=== PATIENT | male | born 1950 | race Caucasian/White ===

== ENCOUNTER → 2019-10-21 | Outpatient (CLI) | payer OTHER ==
[~2019-10-21] MED LIST: APIX2.5T PO; LOPE2CAP3 PO; None per pt
== END | disposition home or self-care (01) ==
LOC: STAR 10:57
PROVIDERS: ATTEND Orthopaedic Surgery
DX: Z01.818 Encounter for other preprocedural examination (principal); M25.371 Other instability, right ankle; I45.10 Unspecified right bundle-branch block
CPT/HCPCS: 93005

== ENCOUNTER 2019-10-29 06:50 | Day surgery (SDC) | payer OTHER ==
[~2019-10-29] VITALS: Ht 175.3 cm; Wt 96.3 kg
[2019-10-29] MEDS: LACTATED RINGERS 1,000 ML IV SCH (07:51)
[2019-10-29] MEDS ORDERED: OMEP-110 PO (07:55)
[2019-10-29] MEDS ORDERED: FENTANYL PF 100 MCG/2ML ONE ×3 (08:24→11:00)
[2019-10-29] MEDS ORDERED: MIDAZOLAM 1 MG/ML, 2ML ONE (08:24)
[2019-10-29] MEDS ORDERED: ONDANSETRON 2MG/ML, 2ML ONE (08:53)
[2019-10-29] MEDS ORDERED: SUCCINYLCHOLINE 20 MG/ML, 10ML ONE (08:53)
[2019-10-29] MEDS ORDERED: DEXAMETHASONE 4 MG/ML, 1ML ONE (08:53)
[2019-10-29] MEDS ORDERED: PROPOFOL 10 MG/ML, 20ML ONE (08:53)
[2019-10-29] MEDS ORDERED: CEFAZOLIN 1,000 MG ONE (08:53)
[2019-10-29] MEDS ORDERED: DIAZEPAM 5 MG/ML, 2ML IVPush PRN (10:00)
[2019-10-29] MEDS ORDERED: KETOROLAC 30 MG/1 ML IV PRN (10:00)
[2019-10-29] MEDS ORDERED: LABETALOL 5MG/ML, 20ML IV PRN (10:00)
[2019-10-29] MEDS ORDERED: ALBUTEROL SULFATE 2.5 MG/3 ML NPPB PRN (10:00)
[2019-10-29] MEDS ORDERED: PROMETHAZINE 25 MG/ML, 1ML IV PRN (10:00)
[2019-10-29] MEDS ORDERED: HYDROmorphone 2 MG/ML, 1ML IVPush PRN (10:00)
[2019-10-29] MEDS ORDERED: MEPERIDINE/PF 25MG/0.5ML IVPush PRN (10:00)
[2019-10-29] MEDS ORDERED: ACETAMINOPHEN 325 MG TABLET PO PRN (10:00)
[2019-10-29] MEDS ORDERED: hydrALAzine 20 MG/ML, 1ML IV PRN (10:00)
[2019-10-29] MEDS ORDERED: KETOROLAC 30 MG/1 ML ONE (10:38)
[2019-10-29] MEDS ORDERED: OXYcodone 5 MG/5 ML ORAL.SOL UDC ONE ×2 (10:38→11:03)
[2019-10-29] MEDS: FENTANYL PF 100 MCG/2ML IV PRN ×4 (10:40→11:07)
[2019-10-29] MEDS: OXYcodone 5 MG/5 ML ORAL.SOL UDC PO PRN ×2 (10:44→11:04)
[2019-10-29] MEDS ORDERED: ACETAMINOPHEN 650 MG/20.3 ML UDC ONE (11:03)
[2019-10-29] MEDS ORDERED: HYDROmorphone 1 MG/ML, 1ML INJ ONE (11:15)
== END 2019-10-29 12:30 | disposition home or self-care (01) ==
LOC: OUT 06:50
PROVIDERS: ATTEND Orthopaedic Surgery
DX: M19.171 Post-traumatic osteoarthritis, right ankle and foot (principal); M25.771 Osteophyte, right ankle; K21.9 Gastro-esophageal reflux disease without esophagitis; Z79.899 Other long term (current) drug therapy; Z86.718 Personal history of other venous thrombosis and embolism
CPT/HCPCS: 28725; 64445; 64447; 73650; C1713; C1762; J0330; J0690; J1100; J1170; J1885; J2250; J2405; J2704; J3010; J7120; 76000

== ENCOUNTER 2020-03-24 05:27 | Day surgery (SDC) | payer OTHER ==
[~2020-03-24] VITALS: Ht 175.3 cm; Wt 98.4 kg
[~2020-03-24 05:27] MED LIST changes: +ACET-1600 PO; +OMEP-110 PO; +OXCA300T19 PO; +TAMS-11 PO
[2020-03-24] MEDS ORDERED: LACTATED RINGERS 1,000 ML IV SCH (06:39)
[2020-03-24 06:41] VITALS: BP 161/95
[2020-03-24] MEDS ORDERED: LIDOCAINE 1%, 20ML ONE (06:49)
[2020-03-24] MEDS ORDERED: BUPIVACAINE/PF-EPI 0.5% 1:200K ONE (06:49)
[2020-03-24] MEDS ORDERED: CHLORHEXIDINE 15 ML UDC MM ONE (07:00)
[2020-03-24] MEDS ORDERED: MIDAZOLAM 1 MG/ML, 2ML ONE (07:19)
[2020-03-24] MEDS ORDERED: FENTANYL PF 250 MCG/5ML ONE (07:19)
[2020-03-24] MEDS ORDERED: ROCURONIUM 10MG/ML,5ML ONE (07:20)
[2020-03-24] MEDS ORDERED: BUPIVACAINE/PF 0.5% ONE (07:21)
[2020-03-24] MEDS ORDERED: SUCCINYLCHOLINE 20 MG/ML, 10ML ONE (07:47)
[2020-03-24] MEDS ORDERED: ONDANSETRON 2MG/ML, 2ML ONE (07:47)
[2020-03-24] MEDS ORDERED: DEXAMETHASONE 4 MG/ML, 1ML ONE ×2 (07:58→07:59)
[2020-03-24] MEDS ORDERED: CEFAZOLIN 1,000 MG ONE ×2 (07:59)
[2020-03-24] MEDS ORDERED: HYDROmorphone 1 MG/ML, 1ML INJ IVPush PRN (08:30)
[2020-03-24] MEDS ORDERED: hydrALAzine 20 MG/ML, 1ML IV PRN (08:30)
[2020-03-24] MEDS ORDERED: ACETAMINOPHEN 325 MG TABLET PO PRN (08:30)
[2020-03-24] MEDS ORDERED: LABETALOL 5MG/ML, 20ML IV PRN (08:30)
[2020-03-24] MEDS ORDERED: PROMETHAZINE 12.5 MG SUPP PR PRN (08:30)
[2020-03-24] MEDS ORDERED: PROMETHAZINE 25 MG/ML, 1ML IVPush PRN (08:30)
[2020-03-24] MEDS ORDERED: OXYcodone 5 MG/5 ML ORAL.SOL UDC PO PRN (08:30)
[2020-03-24] MEDS ORDERED: DIPHENHYDRAMINE 50 MG/ML, 1ML IVPush PRN (08:30)
[2020-03-24] MEDS ORDERED: FENTANYL PF 100 MCG/2ML IV PRN (08:30)
[2020-03-24] MEDS ORDERED: EPHEDRINE 50 MG/ML, 1ML IVPush PRN (08:30)
[2020-03-24] MEDS ORDERED: MIDAZOLAM 1 MG/ML, 2ML IV PRN (08:30)
[2020-03-24] MEDS ORDERED: ALBUTEROL SULFATE 2.5 MG/3 ML NPPB PRN (08:30)
[2020-03-24] MEDS ORDERED: ONDANSETRON 2MG/ML, 2ML IVPush PRN (08:30)
[2020-03-24] MEDS ORDERED: MEPERIDINE/PF 25MG/0.5ML IVPush PRN (08:30)
[2020-03-24] MEDS ORDERED: DIAZEPAM 5 MG/ML, 2ML IVPush PRN (08:30)
== END 2020-03-24 11:30 | disposition home or self-care (01) ==
LOC: OR 05:27 → OUT 11:30
PROVIDERS: ATTEND Orthopaedic Surgery
DX: T84.84XA Pain due to internal orthopedic prosthetic devices, implants and grafts, initial encounter (principal); Z11.59 Encounter for screening for other viral diseases; K21.9 Gastro-esophageal reflux disease without esophagitis; Y83.8 Other surgical procedures as the cause of abnormal reaction of the patient, or of later complication, without mention of misadventure at the time of the procedure; Z79.899 Other long term (current) drug therapy; Z98.890 Other specified postprocedural states; Z79.01 Long term (current) use of anticoagulants; Z86.711 Personal history of pulmonary embolism; Z82.5 Family history of asthma and other chronic lower respiratory diseases
CPT/HCPCS: 20680; 36415; 73650; 87635; J0330; J0690; J1100; J2250; J2405; J3010; J7120; 76000